=== PATIENT | female | born 1960 | race Caucasian/White ===

== ENCOUNTER 2016-11-24 11:24 | Emergency (ER) | payer MEDICARE, BC ==
--- NOTE | 2016-11-25 11:09 | NUR ---
Received SAD person referral. Called and spoke with pt. Pt has a follow up appt today at [facility] with an BRICK SHADER. Deny any needs at this time.
--- NOTE | 2016-12-06 08:25 | ER ---
ADMIT: 11/24/2016 RM/LOC: ER [facility] MR#: [id number] [address] [id number] [address] [place] [address] Emergency Room Report SEX: F AGE: 56 : 1960 DATE: 11/24/2016 ADDENDUM: This is a 56-year-old white female coming over from her counselor's office acting funny. Essentially, her eyes would flutter, she would not respond to us by choice, but we went ahead and worked her up and looked at her. She finally decided that she needed to use the bathroom, so she did get up and talked to us. At this time, an EPC was obtained with CT scan being negative. Her lab being negative, drug screen negative as well. She has not had any changes in any medications. She was discharged with instructions to follow up with Dr. Bynum, her primary. CONDITION ON DISCHARGE: Fair. Jules Alvarenga MD/ althea JOB #: [id number] CC: Jules Alvarenga MD, Attending Physician UNKNOWN, Family Physician
== END 2016-11-24 15:07 | disposition home or self-care (01) ==
LOC: ER 11:24
DX: F41.9 Anxiety disorder, unspecified (principal); R53.1 Weakness; F32.9 Major depressive disorder, single episode, unspecified; E03.9 Hypothyroidism, unspecified; G20 Parkinson's disease; F02.80 Dementia in other diseases classified elsewhere, unspecified severity, without behavioral disturbance, psychotic disturbance, mood disturbance, and anxiety; Z90.710 Acquired absence of both cervix and uterus; Z86.73 Personal history of transient ischemic attack (TIA), and cerebral infarction without residual deficits; Z88.8 Allergy status to other drugs, medicaments and biological substances; Z79.899 Other long term (current) drug therapy